=== PATIENT | female | born 1965 | race Caucasian/White ===

== ENCOUNTER 2020-12-11 06:29 | Day surgery (SDC) | payer OTHER ==
[~2020-12-11] VITALS: Ht 180.3 cm; Wt 111.8 kg
[2020-12-11 07:00] LABS: CALC OSMOLALITY 281 mosm/kg (275-300); CARBON DIOXIDE 29.1 mmol/L (21.0-32.0); CHLORIDE - SERUM 105 mmol/L (98-107); CREATININE - SERUM 0.8 mg/dL (0.6-1.3); GLUCOSE 110 mg/dL (74-106); POTASSIUM - SERUM 3.6 mmol/L (3.5-5.1); SODIUM 140 mmol/L (136-145); UREA NITROGEN 17 mg/dL (7-18); eGFR NON AFRICAN AMERICAN 78 mL/min (90-120)
[2020-12-11 07:07] LABS: APTT 28.6 SECONDS (22.8-39.4); INR 1.11 (0.85-1.17); PROTIME 13.3 SECONDS (11.6-15.0)
[2020-12-11 07:11] LABS: BASOPHILS 0.6 % (0-2); EOSINOPHILS 6.2 % (0-7); HEMATOCRIT 37.5 % (36.0-48.0); HEMOGLOBIN 12.5 g/dL (12-16); LYMPHOCYTES 27.7 % (15-50); MCH 28.9 pg (26.0-34.0); MCHC 33.3 g/dL (31.0-37.0); MCV 86.6 fL (80.0-100.0); MONOCYTES 9.4 % (2-11); NEUTROPHIL ABS# 2.63 10x3/uL (1.56-6.13); NEUTROPHILS 56.1 % (40-80); PLATELET COUNT 257 10x3/uL (130-400); RBC 4.33 10x6/uL (4.00-5.40); RDW 13.2 % (11.5-14.5); WBC 4.7 10x3/uL (4.8-10.8)
[2020-12-11 07:41] VITALS: BP 152/68; Ht 180.3 cm; Wt 111.8 kg
--- NOTE | 2020-12-11 13:49 | NUR ---
1320 PORTABLE 1300 CHEST XRAY DONE ORDERED. Juan Carlos KAY R.N.
--- NOTE | 2020-12-11 14:57 | NUR ---
1415 DRESSED, AWAKE & ALERT. GIVEN DISCHARGE INFORMATION INCLUDING: MED REC, D/C INSTRUCTIONS FOR CT GUIDED BIOPSY, & [facility] OPS D/C INSTRUCTIONS. PT VOICED UNDERSTANDING. TO PRIVATE CAR PER STAFF. HOME WITH DAUGHTER, LAUREN. Juan Carlos KAY R.N.
== END 2020-12-11 14:15 | disposition home or self-care (01) ==
LOC: D.CT 06:29
PROVIDERS: Radiology Vascular & Interventional Radiology; ATTEND Family Medicine
DX: R91.8 Other nonspecific abnormal finding of lung field (principal)